=== PATIENT | female | born 1995 | race Caucasian/White ===

== ENCOUNTER 2021-06-09 09:23 | Inpatient (IN) | payer OTHER ==
[2021-06-09] VITALS (51 sets, daily range): BP systolic 111–176; BP diastolic 55–106
[~2021-06-09] VITALS: Ht 177.8 cm; Wt 90.9 kg
[2021-06-09] MEDS ORDERED: PRENTAB9 PO (09:43)
[2021-06-09] MEDS ORDERED: LACTATED RINGER'S 1000 ML IV STA (10:02)
[2021-06-09] MEDS ORDERED: OXYTOCIN DRIP 30 UNITS in IV 1 EA IV PRN (10:05)
[2021-06-09] MEDS ORDERED: CARBOPROST TROMETHAMINE 250 MCG/ML AMP IM PRN (10:05)
[2021-06-09] MEDS ORDERED: OXYTOCIN DRIP 30 UNITS in IV 1 EA IV SCH (10:05)
[2021-06-09] MEDS ORDERED: TRANEXAMIC ACID INJection 1,000 MG in NS 100 ML IV PRN (10:05)
[2021-06-09] MEDS ORDERED: METHYLERGONOVINE MALEATE 0.2 MG/ML VIAL (J2210) IM PRN (10:05)
[2021-06-09] MEDS ORDERED: LIDOCAINE 1% MDV 20ML VIAL INFIL PRN (10:05)
[2021-06-09] MEDS ORDERED: HOME MED LIST COMPLETE! XX SCH (10:25)
[2021-06-09 10:49] LABS: HEMATOCRIT 38.4 % (36.0-47.0); HEMOGLOBIN 12.5 g/dl (12.0-15.5); MEAN CORPUSCULAR HEMOGLOBIN 28.9 pg (27.0-33.0); MEAN CORPUSCULAR HGB CONC 32.6 g/dl (32.0-36.5); MEAN CORPUSCULAR VOLUME 88.9 fl (80.0-96.0); PLATELET COUNT, AUTOMATED 162 10^3/uL (150-450); RED BLOOD COUNT 4.32 10^6/uL (4.00-5.40); WHITE BLOOD COUNT 8.8 10^3/uL (4.0-10.0)
--- NOTE | 2021-06-09 10:50 | HPEPDOC ---
Obstetrical History & Physical General Date of Admission Jun 09, 2021 at 09:47 History of Present Illness 25 yo at 41w1d with CHASE of 01 JUN 2021 presents to L&D with complaints of leaking of clear fluid since 0900 this morning. She denies vaginal bleeding, contractions, headache, chest pain, RUQ pain, visual changes, and reports positive movement. 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: History of STD (Hx of chlamydia) Past Medical History Medical History Rh negative, rhogram received 25 MAR 2021 Chlamydia noted at NOB, ANDREA negative Surgical History: Denies/None Family History Significant Family History: No pertinent family hx Social History Marital Status: Single Family situation: Spouse/partner home Psychosocial History: No pertinent psych hx * Smoker: non-smoker Alcohol: Denies Drugs: denies Allergies Coded Allergies: No Known Allergies (Verified Allergy, Unknown, 06/09/21) Medications Scheduled No.137/Iron/Folic Acd ( Vitamin Tablet) 1 Each Tablet, 1 TAB PO DAILY Physical Examination Physical Examination GENERAL: Alert and oriented times three. BREAST: . ABDOMEN: Gravid and non-tender to touch. FETUS: Is vertex (VTX) by sterile vaginal examination (SVE), fetus is vertex (VTX) by Eleazar. HEART RATE: Regular rate and rhythm. LUNGS: Clear to auscultation (CTA). EXTREMITIES: No edema. No clonus. Deep tendon reflexes (DTRs) + 2. Sterile Speculum: Pooling of clear fluid noted in the vaginal vault. Vital Signs/I&O Vital Signs Date Time Temp Pulse Resp B/P (MAP) Pulse Ox O2 Delivery O2 Flow Rate FiO2 06/09/21 10:01 97.2 77 18 143/96 (112) Room Air Laboratory Data 24H LABS Laboratory Tests 2 06/09/21 09:49: Serology Scanned Report Hepatitis B Testing Pertinent Laboratoy Data Blood Type: O- RBC Antibody Screen: Negative HIV: Negative Hepatitis B: Negative Rapid Plasma Reagin: Nonreactive Rubella: Immune Varicella: Immune Chlamydia/Gonorrhea: Positive Group B Streptococcus: Negative Cystic Fibrosis: Negative Anatomy Ultrasound Ultrasound Date: January 13, 2021 Placenta Location: Anterior Normal Anatomy: Yes Placenta Previa: No Steroid Therapy Steroid Therapy: No Vaginal Examination Dilation: 3 cm Effacement: 80% Station: -3 Cervical Consistency: Soft Cervical Position: Posterior Presentation: Cephalic presentation Assessment Heart Rate (FHR): 135 Variability: Moderate Accelerations: None Decelerations: None Tocometer Contractions: Yes Frequency: regular (Every 3-4 minutes) Multi-drug resistant Organism: No history of MDRO Assessment/Plan Assessment IUP at 41w1d PROM Postdates Rh negative, rhogram received 25 MAR 2021 Chlamydia noted at NOB, ANDREA negative Plan Admit and orient. Senior Quality Technician and consent. Diet: clear liquid. Group B Streptococcus (GBS) negative. Labs and intravenous (IV) per unit protocol. Counseled on Pitocin and augmentation of labor. Lactated Ringers (LR): Bolus 1000 mL, then at 125 mL/hr. Anticipate normal spontaneous delivery (). C-S as appropriate. Labor and Delivery Counseling We will deliver your baby through the vagina with possible assistance of forceps or vacuum device if needed for maternal or indications. Forceps and vacuum are devices that can assist with vaginal delivery when normal pushing efforts cannot achieve delivery on their own or when delivery is needed in an emergency for baby's well-being. Medications may be required to induce or augment (help) your labor in order to achieve a vaginal delivery. An episiotomy may be required to help your baby to delivery vaginally. You may also require repair of any lacerations or tears of your vagina or vulva that are caused by delivery. In some cases, emergencies can occur that require an emergency section delivery so quickly that there may not be enough time to stop and complete consent forms for section. Understand that if this occurs, your providers will discuss the need for a section with you before they proceed with surgery. section is the delivery of your baby through an incision in your abdomen. In some situations, section may be safer to mom and baby than continuing labor and is only performed when clinically indicated. Risks of vaginal delivery include but are not limited to: Bleeding, infection, injury to the vagina, pelvic structures, injury to baby, damage to the uterus, reactions to anesthesia, uterine rupture, risk of hysterectomy for life threatening bleeding, or . Medications used to induce or augment labor may increase your risk for infection, uterine tachysystole, uterine rupture, heart rate abnormalities, need for emergency delivery or possible hysterectomy, and hemorrhage. Additional risks for use of forceps and vacuum include: increased risk of perineal and vaginal lacerations, risk of urinary or bowel incontinence, increased risk of injury to baby with bruising, scratches, hematomas on the head, or intracranial bleeding. After the conversation, she verbalized understanding of all of the risks, benefits, alternatives, and side effects that were discussed with her. All questions were answered to her satisfaction and she has no further questions at this time. SHARI DIAZ CNM Jun 09, 2021 10:33
[2021-06-09 11:20] LABS: TOTAL PROTEIN,RANDOM URINE 44.4 MG/DL (0.0-12.0)
[2021-06-09 11:21] LABS: RSV AMPLIFICATION NEGATIVE (NEGATIVE)
[2021-06-09 11:26] LABS: CREATININE FOR GFR 0.64 MG/DL (0.55-1.30); GLOMERULAR FILTRATION RATE > 60.0 (>60)
[2021-06-09 11:27] LABS: ALT/SGPT 16 U/L (12-78); BILIRUBIN,TOTAL 0.5 MG/DL (0.2-1.0); LDH LACTATE DEHYDROGENASE 228 U/L (84-246); URIC ACID 4.9 MG/DL (2.6-6.0)
[2021-06-09] MEDS: LR 1,000 ML IV SCH ×2 (11:49→16:23)
[2021-06-09] MEDS ORDERED: BUTORPHANOL 2 MG/ML INJ (J0595) IV PRN (12:55)
[2021-06-09] MEDS ORDERED: PROMETHAZINE INJ 25 MG/ML VIAL (J2550) IV PRN (12:55)
[2021-06-09] MEDS ORDERED: OXYTOCIN 30 UNITS IN 0.9% NaCl 500ML IV BAG (J2590) As Ordered ONE (13:02)
--- NOTE | 2021-06-09 13:07 | IPNPDOC ---
Obstetrical Progress Note Date of Service Jun 09, 2021 Subjective 25 yo at 41w1d with CHASE of 01 JUN 2021 admitted for PROM and postdates. She is doing well with her contractions. She has now further complaints at this time. We discussed results of her labs and discussed that if BP remains elevated after 1600 today, then will diagnose with GHTN. We also discussed that if BP is severely elevated may need to administer IV medications to control BP and may need to start magnesium sulfate IV. Objective Vital Signs Date Time Temp Pulse Resp B/P (MAP) Pulse Ox O2 Delivery O2 Flow Rate FiO2 06/09/21 12:16 98.0 67 18 123/73 (90) Room Air Assessment Heart Rate (FHR): 125 Variability: Moderate Accelerations: Present Decelerations: None Tocometer Contractions: Yes Frequency: irregular Sterile Vaginal Examination Dilation: 3 cm Effacement (%): 80% Station: -3 Postion/Presentation: Cephalic presentation Assessment and Plan Age: 25 : 1 Term: 0 Pre-term: 0 Abortions: 0 Livin Weeks & Days 41w1d Status: Reassuring Group B Streptococcus: Negative Anticipate: Vaginal Delivery Additional Comments Will start pitocin augmentation. SHARI DIAZ CNM Jun 09, 2021 13:07
[2021-06-09] MEDS ORDERED: ONDANSETRON 4MG/2ML VIAL IV PRN (14:15)
--- NOTE | 2021-06-09 15:27 | IPNPDOC ---
Obstetrical Progress Note Date of Service Jun 09, 2021 Subjective 25 yo at 41w1d with CHASE of 01 JUN 2021 admitted for PROM and postdates. She is doing well with her contractions after a dose of stadol and phernergan and has been able to rest. She reports that contractions are becoming stronger. She has no further complaints at this time. Objective Vital Signs Date Time Temp Pulse Resp B/P (MAP) Pulse Ox O2 Delivery O2 Flow Rate FiO2 06/09/21 15:02 75 135/72 (93) 06/09/21 14:27 18 06/09/21 14:01 98.0 06/09/21 12:16 Room Air Pitocin at 6 mu/min Assessment Heart Rate (FHR): 125 Variability: Moderate Accelerations: Present Decelerations: Late Tocometer Contractions: Yes Sterile Vaginal Examination Dilation: 4 cm Station: -2 Cervical Consistency: Soft Cervical Position: Middle Postion/Presentation: Cephalic presentation Assessment and Plan Age: 25 : 1 Term: 0 Pre-term: 0 Abortions: 0 Livin Weeks & Days 41w1d Status: Reassuring Anticipate: Vaginal Delivery Additional Comments Will decrease pitocin to 2 mu/min and if decelerations are unresolved will turn off and resume if EFM is category 1 for 30 minutes. SHARI DIAZ CNM Jun 09, 2021 15:22
[2021-06-09] MEDS ORDERED: FENTANYL 2MCG/ML ROPIVACAINE 0.2% IN 0.9% NACL 100ML IVBAG As Ordered ONE ×2 (16:10→16:12)
[2021-06-09] MEDS ORDERED: FENTANYL/ROPIVACAINE/NACL BAG 100 ML EPIDURAL SCH (16:35)
[2021-06-09] MEDS ORDERED: EPIDURAL COMMENT XX SCH (16:35)
[2021-06-09] MEDS ORDERED: REFRIGERATOR IV KEYS XX PRN (16:35)
[2021-06-09] MEDS ORDERED: EPIDURAL/PCA KEYS XX PRN (16:35)
--- NOTE | 2021-06-09 18:12 | IPNPDOC ---
Obstetrical Progress Note Date of Service Jun 09, 2021 Objective Vital Signs Date Time Temp Pulse Resp B/P (MAP) Pulse Ox O2 Delivery O2 Flow Rate FiO2 06/09/21 16:23 97 162/97 (118) 06/09/21 16:04 98.1 18 06/09/21 12:16 Room Air Assessment and Plan Additional Comments To room for acceptance of care, patient also has received epidural now. SVE unchanged at 4/80/-2. NST with variable decelerations earlier but now resolved to CAT I. Continue IOL with pitocin. She did have a couple severe range BPs prior to pain control with the epideral, none sustained needing medications, and she denied si/sx of pre-e. This is resolved. Will continue to monitor closely. SLADE LEE DO Jun 09, 2021 18:12
[2021-06-09] MEDS ORDERED: ACETAMINOPHEN TAB 650MG DOSE (2X325MG) PO PRN (21:35)
[2021-06-09] MEDS ORDERED: DOCUSATE SODIUM 100MG CAPSULE PO PRN (21:35)
[2021-06-09] MEDS ORDERED: GENTAMICIN IV SCH (21:35)
[2021-06-09] MEDS ORDERED: RHOGAM 300 MCG (1500 IU) INJ (J2790) IM SCH (21:35)
[2021-06-09] MEDS ORDERED: IBUPROFEN 600MG TAB PO PRN (21:35)
[2021-06-09] MEDS ORDERED: MEASLES,MUMPS,RUBELLA VACCINE INJ (MMR-II) (90707) SC SCH (21:35)
--- NOTE | 2021-06-09 21:48 | DNPDOC ---
[facility] Delivery Note Delivery Note DATE OF DELIVERY: 06/09/21 PREDELIVERY DIAGNOSIS: 41+1/7 weeks' gestation and labor. Gestational hypertension. Rh negative. POST DELIVERY DIAGNOSIS: Delivered. Gestational hypertension. Rh negative. Periurethral laceration. First degree midline laceration. Intraamniotic infection. PROCEDURE: Vaginal delivery. Periurethral laceration repair. Midline laceration repair. CARPET LAYER HELPER: Dr. Severiano Lee DO ANESTHESIA: epidural ESTIMATED BLOOD LOSS: 100 mL. FINDINGS: 3500g , Score 9/9, nuchal cord times 1 DELIVERY SUMMARY: Ms. Prasad is a 25yo at 41+1 who was induced after pre-labor rupture of membranes with pitocin. She progressed to C/C/+3 and delivered the featal head followed by the body without complications. A nuchal cord was reduced at the perineum. The baby had spontaneous movement and cry. Cord clamping was delayed 60s and then was cut by the father of the baby. Cord blood and gasses were obtained. The placenta delivered with gentle downward traction and was in-tact. The uterus was firm and bleeding scant with the aid of bimanual massage and p itocin. A periurethral laceration was repaired with vicryl rapid. A first degree laceration was repaired with 2-0 vicryl. The uterus remained firm and bleeding scant. The sponge, lap, and needle counts were correct. During repair a fever was noted to 101F and ampicillin and gentamicin were ordered for a single dose. Tylenol was ordered for fever. SEVERIANO LEE DO Jun 09, 2021 21:48
[2021-06-09] MEDS: ACETAMINOPHEN 500 MG TAB PO PRN (21:51)
[2021-06-09] MEDS ORDERED: AMPICILLIN SOD 2 GM in D5W MINI-BAG PLUS 100 ML IV ONE (22:00)
[2021-06-09 22:07] LABS: CORD GAS ABE A -5.2; CORD GAS ABE V -3.3; CORD GAS HCO3 A 24.5 MEQ/L; CORD GAS HCO3 V 21.6 MEQ/L; CORD GAS O2 SAT A 30.1 %; CORD GAS O2 SAT V 87.3 %; CORD GAS PCO2 A 65.6 mmHg; CORD GAS PCO2 V 38.7 mmHg; CORD GAS PH A 7.191 UNITS; CORD GAS PH V 7.364 UNITS; CORD GAS PO2 A 17.5 mmHg; CORD GAS PO2 V 39.7 mmHg; CORD GAS SBC A 18.6 MEQ/L; CORD GAS SBC V 21.5 MEQ/L; CORD GAS TCO2 A 26.6 MEQ/L; CORD GAS TCO2 V 22.8 MEQ/L
[2021-06-09] MEDS ORDERED: GENTAMICIN 450 MG in D5W 50 ML IV ONE (23:00)
[2021-06-10 01:10] VITALS: BP 121/66
[2021-06-10] MEDS: ACETAMINOPHEN 500 MG TAB PO PRN (05:39)
[2021-06-10 06:00] VITALS: BP 128/75
--- NOTE | 2021-06-10 06:22 | IPNPDOC ---
Progress Note Date of Service: Jun 10, 2021 Day#: 1 Progress Note SUBJECT: Ms. Prasad is a 25yo PPD1 s/p after induction of labor; 3500g , Score 9/9, first degree midline and periurethral laceration. She has been ambulating, voiding spontaneously without issue and tolerating regular diet. Breast feeding without issue. Reports lochia is less than a normal period. Patient is ambulating well. Reports some cramping with . Denies any pain. Voiding and passing flatus without difficulty. APC 1. GHTN, normal tox labs 2. Rh negative 3. Chlamydia in the 1T 4. Intraamniotic infection, s/p single dose of amp/gent OBJECTIVE: VITAL SIGNS: Within normal limits, afebrile. Alert and oriented times three. No increased WOB Heart rate: non-tachycardic Abdomen: Fundus firm at U-2. Soft, NTTP. Extrem: DTRs 2+, no clonus, neg homans Minimal lochia per patient ASSESSMENT: Ms. Prasad is a 25yo PPD1 s/p after induction of labor; 3500g infant, Score 9/9, first degree midline and periurethral laceration. Vitals within normal limits, afebrile, hemodynamically stable with no evidence of infection. No si/sx of pre-eclampsia. PLAN: 1. Discharge to home today likley tomorrow. 2. Tylenol and motrin for pain. 3. Encourage breast feeding and ambulation. 4. Plans on condoms for contraception, educated on risk of close interval . 5. Routine PP visit in 72h, 7d, and 6 weeks in clinic. 6. Discussed return precautions at length and activity limitations (pelvic rest). VS, I&O, 24H, Fishbone Vital Signs/I&O Vital Signs Date Time Temp Pulse Resp B/P (MAP) Pulse Ox O2 Delivery O2 Flow Rate FiO2 06/10/21 06:00 98.1 88 18 128/75 (92) 98 Room Air I&O- Last 24 Hours up to 6 AM 06/10/21 05:59 Intake Total 3000 ml Output Total 2400 ml Balance 600 ml Laboratory Data 24H LABS Laboratory Tests 2 06/09/21 09:49: Serology Scanned Report Hepatitis B Testing 06/09/21 10:32: Nucleated Red Blood Cells % (auto) 0.0, Urine Random Creatinine 200.0, Urine Random Total Protein 44.4H, Glomerular Filtration Rate > 60.0, Uric Acid 4.9, Total Bilirubin 0.5, Aspartate Amino Transf (AST/SGOT) 18, Alanine Aminotransferase (ALT/SGPT) 16, Lactate Dehydrogenase 228, Syphilis Serology NONREACTIVE, Coronavirus (COVID-19)(PCR) NEGATIVE, Influenza Type A (RT-PCR) NEGATIVE, Influenza Type B (RT-PCR) NEGATIVE, Respiratory Syncytial Virus (PCR) NEGATIVE 06/09/21 21:08: Cord Arterial Blood pH 7.191, Cord Arterial Blood PCO2 65.6, Cord Arterial Blood PO2 17.5, Cord Arterial Blood HCO3 24.5, Cord Arterial Blood Total CO2 26.6, Cord Arterial Blood Base Excess -5.2, Cord Arterial Base Excess (Standard 18.6, Cord Arterial Bld Oxygen Saturation 30.1, Cord Venous Blood pH 7.364, Cord Venous Blood PCO2 38.7, Cord Venous Blood PO2 39.7, Cord Venous Blood HCO3 21.6, Cord Venous Blood Total CO2 22.8, Cord Venous Base Excess (Actual) -3.3, Cord Venous Base Excess (Standard) 21.5, Cord Venous Blood Oxygen Saturation 87.3 CBC/BMP Laboratory Tests 06/09/21 10:32 SLADE LEE DO Jun 10, 2021 06:21
[2021-06-10] MEDS: IBUPROFEN 800 MG TAB PO PRN ×2 (08:40→15:24)
[2021-06-10] MEDS: PRENATAL VITAMINS CHEWABLE TABLET PO SCH (08:40)
[2021-06-10] MEDS ORDERED: INFLUENZA QUADRIVALENT PF VACCINE 0.5ML SYRINGE IM ONE (09:00)
[2021-06-10 18:00] VITALS: BP 136/81
[2021-06-11 06:00] VITALS: BP 133/65
--- NOTE | 2021-06-11 06:51 | IPNPDOC ---
Progress Note Date of Service: Jun 11, 2021 Progress Note SUBJECT: Ms. Prasad is a 25yo PPD2 s/p after induction of labor; 3500g , Score 9/9, first degree midline and periurethral laceration. She has been ambulating, voiding spontaneously without issue and tolerating regular diet. Breast feeding without issue. Reports lochia is less than a normal period. Patient is ambulating well. Reports some cramping with . Denies any pain. Voiding and passing flatus without difficulty. APC 1. GHTN, normal tox labs 2. Rh negative, received rhogam 05OCT 3. Chlamydia in the 1T 4. Intraamniotic infection, s/p single dose of amp/gent OBJECTIVE: VITAL SIGNS: Within normal limits, afebrile. Alert and oriented times three. No increased WOB Heart rate: non-tachycardic Abdomen: Fundus firm at U-2. Soft, NTTP. Extrem: DTRs 2+ Minimal lochia per patient ASSESSMENT: Ms. Prasad is a 25yo PPD2 s/p after induction of labor; 3500g infant, Score 9/9, first degree midline and periurethral laceration. Vitals within normal limits, afebrile, hemodynamically stable with no evidence of infection. No si/sx of pre-eclampsia. PLAN: 1. Discharge to home today 2. Tylenol and motrin for pain. 3. Encourage breast feeding and ambulation. 4. Plans on condoms for contraception, educated on risk of close interval . 5. Routine PP visit in 72h, 7d, and 6 weeks in clinic. 6. Discussed return precautions at length and activity limitations (pelvic rest). VS, I&O, 24H, Fishbone Vital Signs/I&O Vital Signs Date Time Temp Pulse Resp B/P (MAP) Pulse Ox O2 Delivery O2 Flow Rate FiO2 06/10/21 18:00 98.1 87 18 136/81 (99) 97 Room Air TACOS COLON DO Jun 11, 2021 06:36
[2021-06-11] MEDS ORDERED: IBUP80TA PO (06:52)
[2021-06-11] MEDS ORDERED: DOCU100C16 PO (06:52)
[2021-06-11] MEDS ORDERED: ACET1TAB55 PO (06:52)
[2021-06-11] MEDS: PRENATAL VITAMINS CHEWABLE TABLET PO SCH (10:06)
== END 2021-06-11 11:45 | disposition home or self-care (01) | DRG 805 ==
LOC: M LDO 09:23 → M LDI 09:47 → EDBD 09:47 → M OBS 06-10 01:05
PROVIDERS: ADMIT Registered Nurse Maternal Newborn; ATTEND Obstetrics & Gynecology
PROC: 10E0XZZ Delivery of Products of Conception, External Approach (ICD-10-PCS; principal; 2021-06-09)
PROC: 0UQMXZZ Repair Vulva, External Approach (ICD-10-PCS; 2021-06-09)
PROC: 0HQ9XZZ Repair Perineum Skin, External Approach (ICD-10-PCS; 2021-06-09)
PROC: 3E033VJ Introduction of Other Hormone into Peripheral Vein, Percutaneous Approach (ICD-10-PCS; 2021-06-09)
DX: O42.02 Full-term premature rupture of membranes, onset of labor within 24 hours of rupture (principal); Z37.0 Single live birth; O41.1030 Infection of amniotic sac and membranes, unspecified, third trimester, not applicable or unspecified; O48.0 Post-term pregnancy; Z3A.41 41 weeks gestation of pregnancy; O13.4 Gestational [pregnancy-induced] hypertension without significant proteinuria, complicating childbirth; O69.81X0 Labor and delivery complicated by cord around neck, without compression, not applicable or unspecified; O71.82 Other specified trauma to perineum and vulva; O70.0 First degree perineal laceration during delivery